=== PATIENT | female | born 1995 | race Caucasian/White ===

== ENCOUNTER → 2025-02-12 15:08 | Outpatient (BNVA) | payer OTHER, SELFPAY | PROVIDERS: Visit Provider Orthopaedic Surgery | DX: M48.062 Spinal stenosis, lumbar region with neurogenic claudication (principal) | CPT/HCPCS: 72110 ==

== ENCOUNTER 2025-03-06 08:23 | Outpatient (CLI) | payer OTHER, SELFPAY ==
--- NOTE | 2025-03-06 08:45 | MR_ITS ---
WS: [id number] MRI LUMBAR SPINE NONCONTRAST TECHNIQUE: Sagittal T1, T2 and STIR imaging. Axial T1 and T2 imaging. CLINICAL INFORMATION: back pain COMPARISON: None. FINDINGS: Counting performed from the craniocervical junction. L5 is sacralized. Riblets at T12. Recommend plain film correlation prior to surgical intervention. L1-L2: Mild facet arthropathy. Spinal canal and foramen are patent. L2-L3: Mild facet arthropathy. Spinal canal and foramen are patent. L3-L4: Mild annular bulging. Mild facet arthropathy. Spinal canal and foramen are patent. L4-L5: Mild annular bulging with slight effacement of the ventral thecal sac. Narrowing of the subarticular recess. Moderate facet arthropathy. Mild LEFT bony foraminal narrowing. L5-S1: L5 is sacralized. Spinal canal and foramina are patent. Visualized pelvic bony structures: Normal. Paravertebral soft tissues: Normal. MR/MR lumbar spine wo con* [id number] IMPRESSION: 1. Counting performed from the craniocervical junction. L5 is sacralized. Rib lets at T12. Recommend plain film correlation prior to surgical intervention. 2. Mild annular bulging L4-5 with narrowing of the LEFT greater than RIGHT sub articular recess. Mild LEFT foraminal narrowing. 3. Moderate facet arthropathy L3-L4 and L4-L5 worse at L4-5. 4. No other acute findings.
== END 2025-03-06 08:24 | disposition home or self-care (01) ==
LOC: RAD 08:29
PROVIDERS: PCP Nurse Practitioner Family; Visit Provider Orthopaedic Surgery
DX: M47.816 Spondylosis without myelopathy or radiculopathy, lumbar region (principal); M48.061 Spinal stenosis, lumbar region without neurogenic claudication
CPT/HCPCS: 72148